=== PATIENT | male | born 1985 | race African-American/Black ===

== ENCOUNTER 2016-07-10 21:23 | Emergency (ER) | payer MEDICAID ==
[~2016-07-10] VITALS: Ht 188 cm; Wt 86.2 kg
[2016-07-10] MEDS ORDERED: NKM (21:49)
[2016-07-10] MEDS ORDERED: Norco 5mg/325mg tab ORAL ONE (22:00)
[2016-07-10] MEDS ORDERED: HYDROCODON-ACE1 EA15 ORAL (22:04)
[2016-07-10] MEDS ORDERED: IBUPROFEN600 MG ORAL (22:04)
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
[2016-07-10 23:48] VITALS: BP 112/77
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
== END 2016-07-10 23:51 | disposition home or self-care (01) ==
LOC: EMR 21:39
DX: S16.1XXA Strain of muscle, fascia and tendon at neck level, initial encounter (principal); V43.52XA Car driver injured in collision with other type car in traffic accident, initial encounter; Y93.9 Activity, unspecified; Y92.410 Unspecified street and highway as the place of occurrence of the external cause; F15.90 Other stimulant use, unspecified, uncomplicated; F17.200 Nicotine dependence, unspecified, uncomplicated
CPT/HCPCS: 72040; 72050; 72125; 99284

== ENCOUNTER 2016-07-18 19:55 | Emergency (ER) | payer MEDICAID ==
[~2016-07-18] VITALS: Ht 182.9 cm; Wt 65.8 kg
[~2016-07-18 19:55] MED LIST: HYDROCODON-ACE1 EA15 ORAL; IBUPROFEN600 MG ORAL; NKM
[2016-07-18 20:23] VITALS: BP 122/72
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
[2016-07-18] MEDS ORDERED: IBUPROFEN600 MG ORAL (20:50)
[2016-07-18] MEDS ORDERED: TRAMADOL HCL50 MG ORAL (20:50)
[2016-07-18] MEDS ORDERED: ROBAXIN500 MG PO (20:50)
[2016-07-18 21:03] VITALS: BP 122/72
== END 2016-07-18 21:04 | disposition home or self-care (01) ==
LOC: EMR 20:41
DX: M62.838 Other muscle spasm (principal); V89.2XXA Person injured in unspecified motor-vehicle accident, traffic, initial encounter; Y93.9 Activity, unspecified; M54.2 Cervicalgia; Y99.9 Unspecified external cause status; M40.40 Postural lordosis, site unspecified
CPT/HCPCS: 99284

== ENCOUNTER 2016-10-16 14:42 | Emergency (ER) | payer MEDICAID, OTHER ==
[~2016-10-16] VITALS: Ht 188 cm; Wt 87.1 kg
[~2016-10-16 14:42] MED LIST changes: +ROBAXIN500 MG PO; +TRAMADOL HCL50 MG ORAL
[2016-10-16] MEDS ORDERED: PREDNISONE20 MG ORAL (15:09)
[2016-10-16] MEDS ORDERED: ZITHROMAX250 MG ORAL (15:09)
[2016-10-16] MEDS ORDERED: ROBITUSSIN DM5 ML PO (15:09)
[2016-10-16 15:15] VITALS: BP 125/79
[2016-10-16 15:21] VITALS: BP 125/79
--- NOTE | 2016-10-16 16:35 | Emergency Room Report ---
History of Present Illness General Chief Complaint: Upper Respiratory Illness Source: Patient Present Illness HPI The patient is a 31-year-old male presenting for sore throat, cough, and wheezing. He states that the symptoms have been present for the past 4 weeks. He denies fever or chills. He denies any known sick contacts recent travel. He denies any pain. He denies other symptoms Allergies: Coded Allergies: No Known Allergies (Unverified , 07/10/16) Patient History Past Medical History: see triage record Pertinent Family History: none Reviewed Nursing Documentation: PMH: Agreed, PSxH: Agreed Nursing Documentation-PMH Past Medical History: No Stated History Review of Systems All Other Systems: negative except mentioned in HPI Physical Exam Vital Signs Date Time Temp Pulse Resp B/P (MAP) Pulse Ox O2 Delivery O2 Flow Rate FiO2 10/16/16 14:48 98.2 98 16 125/79 98 Room Air Sp02 EP Interpretation: reviewed, normal General Appearance: no apparent distress, alert, GCS 15, non-toxic Head: normocephalic, atraumatic Eyes: bilateral eye normal inspection, bilateral eye PERRL ENT: normal voice, uvula midline, tonsillar swelling, pharyngeal erythema, tonsillar exudate Neck: full range of motion, no bony tend, supple/symm/no masses Respiratory: chest non-tender, lungs clear, normal breath sounds, speaking full sentences Cardiovascular #1: regular rate, rhythm, no edema Musculoskeletal: back normal, gait/station normal, normal range of motion, non- tender Neurologic: alert, oriented x3, responsive, motor strength/tone normal, sensory intact, speech normal Psychiatric: judgement/insight normal, memory normal, mood/affect normal, no suicidal/homicidal ideation Skin: normal color, no rash, warm/dry, well hydrated Medical Decision Making PA Attestation Dr. Kerns is my supervising physician. Patient management was discussed with my supervising physician Diagnostic Impression: Primary Impression: Pharyngitis, acute Qualified Codes: J02.9 - Acute pharyngitis, unspecified ER Course The patient is a 31-year-old male presenting for sore throat, cough, and wheezing. Differential diagnosis include but not limited to pharyngitis, sinusitis, AOM, bronchitis, PNA Physical exam: Vitals within normal limits. Afebrile. No apparent distress HEENT exam: There is bilateral tonsillar edema, erythema, and exudate. Uvula midline. Moist mucous membranes. There is no cervical lymphadenopathy. Lungs are clear to auscultation bilaterally Skin is warm and dry. No rash The patient will be discharged home with a prescription for azithromycin, prednisone, cough medication, and is given ER precautions. Patient will followup with primary care Last Vital Signs Date Time Temp Pulse Resp B/P (MAP) Pulse Ox O2 Delivery O2 Flow Rate FiO2 10/16/16 15:21 98.2 16 125/79 98 Room Air 10/16/16 15:15 98 Status: improved Disposition: HOME, SELF-CARE Condition: Improved Scripts Prednisone* (PREDNISONE*) 20 Mg Tablet 20 MG ORAL DAILY, #5 TAB 0 Refills Prov: KALEB SAAVEDRA.A. 10/16/16 Guaifenesin/Dextromethorphan (Guaifenesin Dm Syrup) 5 Ml Syrup 10 ML PO Q6HR, #200 ML Prov: KALEB SAAVEDRA P.A. 10/16/16 Azithromycin* (ZITHROMAX*) 250 Mg Tablet 250 MG ORAL DAILY, #6 TAB 0 Refills Take two tables once daily for 1 day, then one tablet once daily for 4 days. Prov: ANNIEANKALEB P.A. 10/16/16 Referrals: NOT CHOSEN IPA/MD,REFERRING (PCP) Patient Instructions: Pharyngitis Additional Instructions: I discussed my findings with the patient. All questions and concerns have been answered. Treatment and medication compliance have been addressed. I advised the patient that they need to follow up with PMD in 3-5 days. Return to ED if pain remains or worsens, cough worsens or remains, you notice blood in your sputum, you notice wheezing, you experience a fever, or if needed for any reason. Patient verbalized understanding of discharge instructions. KALEB SAAVEDRA Oct 16, 2016 16:35
== END 2016-10-16 15:15 | disposition home or self-care (01) ==
LOC: EMR 15:07
DX: J02.9 Acute pharyngitis, unspecified (principal)
CPT/HCPCS: 99284

== ENCOUNTER 2016-12-10 16:22 | Emergency (ER) | payer OTHER ==
[~2016-12-10] VITALS: Ht 188 cm; Wt 88.9 kg
[~2016-12-10 16:22] MED LIST changes: +PREDNISONE20 MG ORAL; +ROBITUSSIN DM5 ML PO; +ZITHROMAX250 MG ORAL
--- NOTE | 2016-12-10 18:49 | Emergency Room Report ---
History of Present Illness General Chief Complaint: Toothache Source: Patient Present Illness HPI 31 YO Male presents to the ED c/O 10/03 in severity localized pain and ttp to the right lower 1st molar. pt. reports just finished oral abx which was rx'd by dentist for dental abscess. pt. was told required his tooth to be pulled but was unable to have procedure performed at that visit due to cost. denies sore throat, neck pain or stiffness. denies trismus. pt. reports that while eating food today he felt his tooth crack more, and had acute onset of pain, denies swelling, erythema, fluctuance, or d/c about the gumline/tooth. pt. denies fevers or chills. Denies CP, Palpitations, LOC, AMS, dizziness, Changes in Vision, Sensation, paresthesias, or a sudden severe headache. Allergies: Coded Allergies: No Known Allergies (Unverified , 07/10/16) Patient History Past Medical History: see triage record Past Surgical History: none Pertinent Family History: none Immunizations: UTD Reviewed Nursing Documentation: PMH: Agreed, PSxH: Agreed Nursing Documentation-PMH Past Medical History: No Stated History Review of Systems All Other Systems: negative except mentioned in HPI Physical Exam Vital Signs Date Time Temp Pulse Resp B/P (MAP) Pulse Ox O2 Delivery O2 Flow Rate FiO2 12/10/16 16:49 98.4 86 16 112/74 99 Room Air Sp02 EP Interpretation: reviewed, normal General Appearance: no apparent distress, alert, GCS 15, non-toxic Head: normocephalic, atraumatic Eyes: bilateral eye normal inspection, bilateral eye PERRL ENT: hearing grossly normal, normal pharynx, no angioedema, normal voice, TMs + canals normal, uvula midline, other - poor dentition, tooth number 30 cracked in multiple places, appearance of previous root canal, no palpable fluctuance to the gum line, tenderness to percussion. Neck: full range of motion Respiratory: lungs clear, normal breath sounds, speaking full sentences Cardiovascular #1: regular rate, rhythm Musculoskeletal: back normal, gait/station normal, normal range of motion, non- tender Neurologic: alert, oriented x3, responsive, motor strength/tone normal, sensory intact, speech normal Psychiatric: judgement/insight normal, memory normal, mood/affect normal Skin: normal color, no rash, warm/dry, well hydrated Lymphatic: no adenopathy Medical Decision Making PA Attestation Dr. Moulton is my supervising Physician whom patient management has been discussed with. Diagnostic Impression: Primary Impression: Pain, dental Additional Impressions: Acute pulpitis Broken or cracked tooth, nontraumatic ER Course 31 YO Male presents to the ED c/O 8/10 in severity localized pain and ttp to the right lower 1st molar. pt. reports just finished oral abx which was rx'd by dentist for dental abscess. pt. was told required his tooth to be pulled but was unable to have procedure performed at that visit due to cost. denies sore throat, neck pain or stiffness. denies trismus. pt. reports that while eating food today he felt his tooth crack more, and had acute onset of pain, denies swelling, erythema, fluctuance, or d/c about the gumline/tooth. pt. denies fevers or chills. Denies CP, Palpitations, LOC, AMS, dizziness, Changes in Vision, Sensation, paresthesias, or a sudden severe headache. Ddx considered but are not limited to cellulitis, dental abscess, orbital cellulitis, d/l tooth, dental pain. trigeminal neuralgia, pulpitis just to name a few. Vital signs: are WNL, pt. is afebrile H&PE are most consistent with pulpitis secondary to cracked tooth ( tooth no. 30 ) , no evidence of abscess or palpable fluctuance at this time. ORDERS: none required at this time, the diagnosis is clinical ED INTERVENTIONS: -[place] PO - Pt. given list of low cost dental clinics. I do not suspect an emergent condition at this time. with current presentation pt. is stable for close outpatient follow up and dentist evaluation. D/w pt. to return to ED with worsening or new symptoms. DISCHARGE: At this time pt. is stable for d/c to home. Will provide printed patient care instructions, and any necessary prescriptions. Care plan and follow up instructions have been discussed with the patient prior to discharge. Last Vital Signs Date Time Temp Pulse Resp B/P (MAP) Pulse Ox O2 Delivery O2 Flow Rate FiO2 12/10/16 16:49 98.4 86 16 112/74 99 Room Air Disposition: HOME, SELF-CARE Condition: Stable Scripts Chlorhexidine Gluconate (CHLORHEXIDINE GLUCONATE) 473 Ml Mouthwash 15 ML MM BID, #473 ML Prov: Criss Puri 12/10/16 Ibuprofen* (MOTRIN*) 600 Mg Tablet 600 MG ORAL THREE TIMES A DAY, #30 TAB 0 Refills Prov: Criss Puri 12/10/16 Hydrocodone Bit/Acetaminophen 5-325* (NORCO 5-325 TABLET*) 1 Each Tablet 1 TAB ORAL Q6HR Y for For Pain, #6 TAB Prov: Criss Puri 12/10/16 Referrals: NON PHYSICIAN (PCP) Patient Instructions: Dental Pain Additional Instructions: Take medications as directed. Follow up with a Primary Care Provider in 3 days, even if your symptoms have resolved. SEE DENTIST in 48 HOURS --Please review list of primary care clinics, if you do not already have a primary care provider Return sooner to ED if new symptoms occur, or current symptoms become worse. Do not drink alcohol, drive, or operate heavy machinery while taking [place] as this may cause drowsiness. - Please note that this Emergency Department Report was dictated using [employer] physical education teacher technology software, occasionally this can lead to erroneous entry secondary to interpretation by the dictation equipment. Criss Puri Dec 10, 2016 18:49
[2016-12-10] MEDS ORDERED: NORCO 5-325 TA1 EAC1 ORAL (18:51)
[2016-12-10] MEDS ORDERED: IBUPROFEN600 MG ORAL (18:51)
[2016-12-10] MEDS ORDERED: CHLORHEXIDINE473 ML MM (18:51)
[2016-12-10] MEDS ORDERED: Norco 5mg/325mg tab ORAL ONE (19:00)
[2016-12-10 19:25] VITALS: BP 136/67
== END 2016-12-10 19:29 | disposition home or self-care (01) ==
LOC: EMR 17:28
DX: K08.89 Other specified disorders of teeth and supporting structures (principal); K04.01 Reversible pulpitis; K03.81 Cracked tooth
CPT/HCPCS: 99283

== ENCOUNTER 2019-12-28 08:46 | Emergency (ER) | payer OTHER ==
[~2019-12-28] VITALS: Ht 188 cm; Wt 93.0 kg
[~2019-12-28 08:46] MED LIST changes: +CHLORHEXIDINE473 ML MM; +NORCO 5-325 TA1 EAC1 ORAL
--- NOTE | 2019-12-28 08:58 | NUR ---
ED Nurse Note: PT AMBULATED TO ED C/O RIGHT LOWER MOLAR PAIN RADIATING TO RIGHT EAR X 2-3 DAYS. PT REPORTS HE DOES HAVE A DENTIST APPOINTMENT COMING UP, BUT PAIN BOTHERSOME SO HE COME TO ER.
--- NOTE | 2019-12-28 08:59 | NUR ---
ED Nurse Note: NO FACIAL SWELLING PRESENT, PT DENIES FOUL TASTE, NO ABCESS VISIBLE. PT DENIES TENDERNESS TO SITE.
[2019-12-28 09:00] VITALS: BP 126/85
[2019-12-28 09:06] VITALS: BP 122/81
--- NOTE | 2019-12-28 09:06 | NUR ---
ER DISCHARGE NOTE: Patient is cleared to be discharged per ERMD, pt is aox4, on room air, with stable vital signs. pt was given dc and prescription instructions, pt was able to verbalize understanding, pt id band removed. pt is able to ambulate with steady gait. pt took all belongings.
[2019-12-28] MEDS ORDERED: AUGMENTIN 875-1 EAC1 ORAL (09:08)
[2019-12-28] MEDS ORDERED: NAPROXEN500 M1 ORAL (09:08)
[2019-12-28] MEDS ORDERED: Augmentin 875mg Tab ONE (09:09)
[2019-12-28] MEDS ORDERED: Augmentin 875mg Tab ORAL ONE (09:15)
--- NOTE | 2019-12-28 09:16 | Emergency Room Report ---
History of Present Illness General Chief Complaint: Toothache Source: Patient Present Illness HPI 34-year-old male with prior history of multiple dental cavities presents with right lower molar dental pain x 2 days. Also endorses swollen lymph node on R neck and R ear discomfort. Denies SOB, drooling, stridor, fever, n/v/d, CP, weakness, BETANCOURT, photophobia, neck stiffness, weakness, hearing loss, ear discharge or rash. The patient's symptoms were gradual onset, severity was moderate, duration since 2 days. Quality: aching Pt has appointment for dental extraction this week Past medical history: dental cavity Past surgical history: Denies Smoking: Previous smoker Alcohol use: ++occasional Drug use: Denies Review of systems: CONST: No fevers or chills, No night sweats PULMONARY: No productive cough, No shortness of breath CARDIAC: No chest pain, No palpitations GI: No vomiting, No diarrhea , No melena_or_BRBPR : No dysuria, No hematuria, No discharge NEURO: No new_focal_weakness_or_numbness, No confusion, No vision changes 14 point Review of Systems is otherwise negative except per HPI Physical Exam: GENERAL: Awake_alert_ nontoxic, no acute distress Spo2 95% on RA -normal EYES: Extraocular muscles are intact. Conjunctivae clear. Lids without swelling. No proptosis. No cycloplegia. ENT: Poor dentition. Right molar #32 cavity with chronic appearing dental fracture. No saulo-apical abscess. No submandibular swelling, crepitus, or cellulitis. External nose and ear normal_in_appearance. Oropharynx clear. Head_atraumatic, Moist_oral_mucosa NECK: No JVD. No meningismus. No thyromegaly. Supple. Trachea midline. No hoarse voice, stridor, drooling. Tolerates oral secretions without difficulty. Speaks in full and complete sentences. Tender right sided cervical lymph node. No abscess RESP: Normal respiratory effort. Symmetric rise. No stridor. Clear_to_auscultation_No_rales_No_wheezes CARDIAC: Regular rate and regular rhytm. No_significant pedal edema. ABDOMEN: Soft. Nondistended. Nontender_No_rebound_or_guarding. MSK: Normal muscle tone, without rigidity. Extremities without asymmetric deformity or swelling. SKIN: Warm and dry. No visible cyanosis or pallor NEUROLOGIC: Alert, oriented x3. Motor_and_sensation_grossly_intact. No truncal ataxia. Gait_normal Psych: Normal mood and affect, normal judgment and insight - COORDINATION OF CARE Case was discussed with: Patient Any labs and imaging that were ordered were interpreted as part of the medical decision making: Medical Decision Making/Plan: DDx: dental pain 2/2 dental carry vs dental fx vs abscess No signs of deep space neck infection Airway is intact. Patient is afebrile. No nuchal rigidity. Oropharyngeal examination demonstrates right mandibular dental fracture with dental carry with no concomitant periapical abscess. There is no Arthur's angina or signs of deep space neck infection. Uvula is midline. There is no stridor, drooling, hoarse voice. Patient is generally well-appearing. He received his first dose of antibiotic here in the emergency department along with Decadron. Will discharge home with Augmentin for 1 week and instructions to follow-up with dental clinic for eventual dental extraction. Patient agrees. Referrals and dental clinic info given Pertinent results reviewed with the patient. I educated the patient on the current treatment plan including the risks, benefits, and alternatives. I also discussed the extent and limitations of the current evaluation. The patient expressed understanding and agreement with plan. I recommended PMD/dentist follow-up within 1-2 days. Also advised that the patient return to the Emergency Department as soon as possible if they experience any new, persistent, or worsening symptoms. 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 COVID-19 Screening: Negative COVID-19 COVID-19 Testing Source: [employer] Nursing Documentation-[facility] Past Medical History: No Stated History Physical Exam Vital Signs Date Time Temp Pulse Resp B/P (MAP) Pulse Ox O2 Delivery O2 Flow Rate FiO2 12/28/19 08:51 96.6 82 14 126/85 (99) 95 Room Air Sp02 EP Interpretation: reviewed, normal Medical Decision Making Diagnostic Impression: Primary Impression: Broken or cracked tooth, nontraumatic Additional Impression: Pain, dental Last Vital Signs Date Time Temp Pulse Resp B/P (MAP) Pulse Ox O2 Delivery O2 Flow Rate FiO2 12/28/19 09:06 97.0 82 16 122/81 97 Room Air Disposition: HOME, SELF-CARE Admit Decision Time: 09:16 Condition: Stable Scripts Naproxen* (NAPROXEN*) 500 Mg Tablet. 500 MG ORAL TWICE A DAY for 10 Days, #20 TAB Prov: Amy Jama D.O. 12/28/19 Amoxicillin/Potassium Clav 875-125* (AUGMENTIN 875-125 TABLET*) 1 Each Tablet 1 TAB ORAL TWICE A DAY, #14 TAB Prov: Amy Jama D.O. 12/28/19 Referrals: [facility]ERRING (PCP) [facility](age 2-12) - Orthodontic Clinic - Hours: Fri,Fri,, 8:15am and 1pm (new patient screening), Tues. 1pm. Emergency clinic Friday - Friday 8:30am and 1pm, Tues. 1pm. *Call to check if clinic is open; No appointment necessary for the first visit (new patient screening), Arrive 15-30 minutes early as it is first come, first serve. [facility] INFO: New Patient Screening: Fri- 8am-1pm Fri- 9am -5pm and Fri 2pm-5pm Patient Instructions: Dental Pain Additional Instructions: Instructions for patient/network systems consultant: Follow up with your dentist physician in 1-2 days. Follow-up with your doctor sooner if your condition requires a more timely clinical reevaluation. Return to the emergency department immediately if you feel that your condition is worsening or if you have any new or concerning symptoms. Review your discharge instructions and take any prescriptions given as instructed. [facility] PROVIDES FREE OR LOW-COST HEALTH SERVICES TO PEOPLE WHO CAN SHOW PROOF THAT THEY LIVE IN [facility]. TO FIND MORE CLINICS PARTNERED WITH THE [facility] TO PROVIDE SERVICE, PLEASE CALL . Amy Jaam D.O. Dec 28, 2019 09:16
== END 2019-12-28 09:14 | disposition home or self-care (01) ==
LOC: EMR 08:59
DX: S02.5XXA Fracture of tooth (traumatic), initial encounter for closed fracture (principal); X58.XXXA Exposure to other specified factors, initial encounter; Y92.9 Unspecified place or not applicable; K08.89 Other specified disorders of teeth and supporting structures; Z87.891 Personal history of nicotine dependence
CPT/HCPCS: J8540; Z7502; 99282